=== PATIENT | male | born 1950 | race Caucasian/White ===

== ENCOUNTER 2020-10-18 11:24 | Observation (INO) ==
[2020-10-18] MEDS ORDERED: SODIUM CHLORIDE 0.9% 500 ML IV STA (11:48)
[2020-10-18] MEDS ORDERED: MoRPHine SULFATE 10 MG/ML CARP/VIAL IV PRN (11:48)
[2020-10-18] MEDS ORDERED: ONDANSETRON INJ 2 MG/ML 2 ML VIAL IV STA ×2 (11:48→14:26)
[2020-10-18 12:08] LABS: Hematocrit (blood only) 44.2 % (42-52); Hemoglobin 15.8 g/dL (14.0-18.0); Mean Corpuscular Hemoglobin 32.1 pg (25-34); Mean Corpuscular Hgb Conc 35.7 g/dL (32-36); Mean Corpuscular Volume 89.8 fL (80-100); Mean Platelet Volume 11.1 fL (7.4-10.4); Platelet Count 219 K/uL (130-400); RDW Coefficient of Variation 12.4 % (11.5-14.5); RDW Standard Deviation 40.6 fL (36.4-46.3); Red Blood Count 4.92 M/uL (4.7-6.1); White Blood Count 13.27 K/uL (4.8-10.8)
[2020-10-18] MEDS ORDERED: ACETAMINOPHEN 1,000 MG/100 ML VIAL IV STA (12:09)
[2020-10-18 12:23] LABS: BUN Creatinine Ratio 9.9 (10-20); Calcium 9.5 mg/dl (8.5-10.1); Est GFR (Non-African American) 39.7; Potassium 3.6 mmol/L (3.5-5.1)
--- NOTE | 2020-10-18 12:45 | Emergency Department Note ---
Impression & Plan Right distal ureteral calculus, Acute right flank pain, Hydroureteronephrosis, Acute kidney injury ED Provider Note CHIEF COMPLAINT: Right flank pain HISTORY OF PRESENTING ILLNESS: This is a 70-year-old male who presents to the emergency department by private vehicle with complaint of right flank pain that started yesterday and became more severe today. The patient states the pain starts in his right mid back and wraps around to the right abdomen and radiates into his groin, is constant, sharp and stabbing and "feels like someone is punching me in my back", and he rates the pain 10/10. He notes that he has been having some difficulty urinating as well. He does note a history of BPH. He states that he has been feeling very nauseated but has not vomited. He tried ibuprofen and hydrocodone for the pain and Zofran at home, but has not had any improvement. He denies any chest pain, chest tightness, shortness of breath, palpitations, or syncope. He has a history of a right inguinal hernia repair last summer, he denies any other abdominal surgeries. He denies any history of kidney stones, but states he has siblings with a history of kidney stones. REVIEW OF SYSTEMS: A complete 10 point review of systems was reviewed with the patient with pertinent positives and negatives as per history of present illness. All else were negative. PAST MEDICAL HISTORY: Hyperlipidemia, right inguinal hernia repair SOCIAL HISTORY: Lives at home, denies tobacco use ALLERGIES: No known allergies PHYSICAL EXAM: CONSTITUTIONAL: Pleasant and cooperative. Nontoxic-appearing and in no acute distress. Well appearing and well nourished. HEENT: Normocephalic, atraumatic. NECK: Supple, full active range of motion without discomfort. RESPIRATORY: Clear to auscultation bilaterally with no wheezing, crackles, rhonchi or stridor. Equal expansion bilaterally. CARDIOVASCULAR: Regular rate and rhythm with no murmurs, rubs or gallops. Normal peripheral perfusion. No edema. GASTROINTESTINAL: Tender to palpation in the right flank and right lower quadrant abdomen, no rebound tenderness or guarding. Abdomen is soft and mildly distended. No palpable masses or HSM. Bowel sounds present in all quadrants. Mild right-sided CVA tenderness to percussion. MUSCULOSKELETAL: Full range of motion of all joints without discomfort. INTEGUMENTARY: No rash or other significant dermatologic conditions noted. NEUROLOGIC: Alert and oriented X 4 with normal affect. Normal strength and sensation in all 4 extremities. Normal speech. Normal gait observed ED COURSE AND MEDICAL DECISION MAKING: CC: Patient presenting with complaint of right flank pain DIFFERENTIAL DIAGNOSIS: Includes, but not limited to ureteral stone, UTI, pyelonephritis, urinary retention, urinary obstruction, appendicitis, cholecystitis, cholelithiasis, pancreatitis, gastroenteritis, AAA, mesenteric ischemia, ACS, among others. INTERPRETATION OF LABS: Leukocytosis, no anemia, normal platelets, no significant electrolyte abnormalities, normal BUN with an elevated creatinine (increased from baseline), normal liver enzymes and lipase. Troponin is undetectable. UA negative. IMAGING: ABDOMEN AND PELVIS CT WITH IV CONTRAST CT DOSE: 1044.87 mGy.cm HISTORY: Acute right-sided flank pain right flank pain TECHNIQUE: Multiaxial CT images of the abdomen and pelvis were performed following the IV administration of 93 cc of Optiray 320, A dose lowering technique was utilized adhering to the principles of ALARA. COMPARISON STUDY: Abdominal ultrasound 01/30/2020 FINDINGS: The imaged inferior cardiac chambers are unremarkable. Mild subsegmental bibasilar atelectasis/scarring. There is no pneumatosis or p neumoperitoneum. 9 mm hypodense lesion of the superior spleen is indeterminate however statistically benign. Unremarkable pancreas and adrenal glands. Cholelithiasis without CT evidence of acute cholecystitis. Unremarkable liver. Patency of the hepatic and portal veins. There are a few left-sided renal cysts measure up to 9 mm. There is mild right- sided hydroureteronephrosis with reactive perinephric and periureteral edema with slightly delayed nephrogram secondary to an obstructing 4 x 3 x 2 mm calculus of the distal right ureter approximately 12 mm proximal to the ureterovesicular junction. Prostamegaly. Partial urinary bladder distention. Prior right-sided inguinal hernia repair. Mixed plaque of the abdominal aorta without aneurysm. No adenopathy. Mild nonspecific distal esophageal wall thickening with tiny hiatal hernia. Colonic diverticulosis. Normal appendix. Tiny fat filled periumbilical hernia. Severe facet arthrosis. Moderate to severe disc space narrowing at L5-S1. IMPRESSION: 1. Mild right-sided hydroureteronephrosis secondary to an obstructing 4 mm calculus of the distal right ureter approximately 12 mm proximal to the ureterovesicular junction resulting in a delayed nephrogram with reactive perinephric and periureteral edema. 2. No bowel obstruction or bowel wall thickening. Normal appendix. 3. Cholecystectomy. 4. Tiny hiatal hernia. EKG: Shows normal sinus rhythm with a rate of 73 bpm, normal intervals, no ST elevation or depression, no ectopy, no significant change when compared to previous EKG from 02/20/2020 by my interpretation. MEDICATION RECONCILIATION: I attest that I have personally reviewed the patient's current medication list. INITIAL VITAL SIGNS REVIEW: I reviewed the patient's initial vital signs and interpret them as follows: T: Afebrile; BP: Hypertensive; HR: Within normal limits; RR: Within normal limit; Pulse Ox: Within normal limits on room air. MDM SUMMARY: Patient was evaluated at bedside, history and physical exam performed. Patient is alert and oriented, in no acute distress, but appears significantly uncomfortable from pain. The patient has already received 6 mg IV morphine and 4 mg IV Zofran per nursing protocol orders and he does note that his pain is improved, currently rating it 7/10. He is afebrile and nontoxic-appearing. There is tenderness to palpation throughout the right flank and right lower abd omen, no acute abdomen. He complains of some nausea, but is not actively vomiting. Orders were placed for labs, UA and reflex culture, IV fluid bolus for hydration, EKG and troponin, CT abdomen/pelvis with IV contrast to evaluate for flank pain. Patient was additionally given a dose of 1000 mg IV Tylenol for pain. Patient discussed with Dr. Johns, who also evaluated the patient and agrees with my assessment, plan, and disposition. Labs and imaging reviewed as above, mild leukocytosis which I suspect is secondary to pain, no electrolyte abnormalities, creatinine is elevated from baseline suggestive of a mild SAMARA, liver enzymes and lipase are normal. Troponin negative. UA negative for infection or blood. CT imaging evaluated as above, noting a 4 mm distal right ureteral calculus with some mild hydroureteronephrosis. Patient was reassessed and updated on all results, he feels that his pain and nausea are starting to return and request something additional. IV Toradol and IV Zofran were ordered as well as p.o. Flomax and a second fluid bolus for continued hydration. I did also give the patient a dose of p.o. oxycodone 5 mg and p.o. fluids trial. Patient reassessed multiple times throughout ED stay, he has remained hemodynamically stable and afebrile, but he reports his pain is still 8/10 after receiving all the above medications and he continues to have nausea off and on. He is concerned about going home due to his pain level. I discussed with the patient the option of admission for pain management, he was agreeable to this. I feel that he warrants close monitoring of his creatinine as well and can be evaluated by urology tomorrow. I spoke with Dr. Ricardo, Hospitalist, who agrees to evaluate the patient for admission. The patient was stable at time of admission. The chart was completed utilizing [employer] Speech voice recognition software. Grammatical errors, random word insertions, pronoun errors, and incomplete sentences are an occasional consequence of this system due to software limitations, ambient noise, and hardware issues. Any formal questions or concer ns about the content, text, or information contained within the body of this dictation should be directly addressed to the nurse practitioner for clarification. Past Med/Surg History Medical History BPH (benign prostatic hyperplasia) History of herniated intervertebral disc no surgery needed Hyperlipidemia Surgical History H/O right inguinal hernia repair (02/25/20) Open right inguinal hernia repair. Dr. 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 Assistive Devices: None Allergies Allergies Allergy/AdvReac Type Severity Reaction Status Date / Time No Known Allergies Allergy NONE Verified 04/01/20 09:31 Home Meds Home Medications Medication Instructions Recorded Confirmed cholecalciferol (vitamin D3) 25 75 mcg PO DAILY 02/18/20 10/18/20 mcg (1,000 unit) tablet atorvastatin 10 mg tablet 10 mg PO DAILY 02/19/20 10/18/20 Previous Rx's Medication Instructions Recorded acetaminophen 1,000 mg PO TID #7 tab 10/19/20 ondansetron 4 mg disintegrating 4 mg PO Q8H PRN #14 tab 10/19/20 tablet oxycodone 5 mg PO Q4H PRN #10 tab 10/19/20 pantoprazole 40 mg PO DAILY 30 Days #30 tab 10/19/20 tamsulosin 0.4 mg PO HS 14 Days #14 cap 10/19/20 Results & Data (ED) Vital Signs Vital Signs - 24 hr 10/18/20 11:25 10/18/20 13:25 10/18/20 15:43 Temperature 36.6 C Temperature Source Temporal Artery Scan Pulse Rate 77 Pulse Rate [Finger] 78 72 Respiratory Rate 18 16 18 Blood Pressure 207/101 H Blood Pressure [Right Arm] 148/85 H 182/96 H Blood Pressure Mean 136 Blood Pressure Mean [Right Arm] 106 124 Pulse Oximetry 100 98 100 Oxygen Delivery Method Room Air Room Air Room Air Sepsis Recent Fever Within 48 Hours No Sepsis New/Unexplained Change in Mental Status No Sepsis Action Taken by Nursing No Action Required Laboratory Data Result diagrams: 10/19/20 05:22 10/19/20 05:22 Lab Results 10/18/20 10/18/20 10/18/20 Range/Units 11:48 11:48 11:48 WBC 13.27 H (4.8-10.8) K/uL RBC 4.92 (4.7-6.1) M/uL Hgb 15.8 (14.0-18.0) g/dL Hct 44.2 (42-52) % MCV 89.8 (80-100) fL MCH 32.1 (25-34) pg MCHC 35.7 (32-36) g/dL RDW Std Deviation 40.6 (36.4-46.3) fL RDW Coeff of Freddie 12.4 (11.5-14.5) % Plt Count 219 (130-400) K/uL MPV 11.1 H (7.4-10.4) fL Sodium 140 (136-145) mmol/L Potassium 3.6 (3.5-5.1) mmol/L Chloride 106 (98-107) mmol/L Carbon Dioxide 25 (21-32) mmol/L Anion Gap 9.0 (3-11) BUN 17 (7-18) mg/dl Creatinine 1.73 H (0.6-1.4) mg/dl Est Cr Clr Drug Dosing 48.0 ml/min Est GFR ( Amer) 46.0 Est GFR (Non-Af Amer) 39.7 BUN/Creatinine Ratio 9.9 L (10-20) Glucose 138 H (70-99) mg/dl Calcium 9.5 (8.5-10.1) mg/dl Total Bilirubin 0.8 (0.2-1) mg/dl Direct Bilirubin 0.2 (0-0.2) mg/dl AST 22 (15-37) U/L ALT 35 (12-78) U/L Alkaline Phosphatase 88 (45-117) U/L Troponin I < 0.015 (0-0.045) ng/ml Total Protein 7.3 (6.4-8.2) gm/dl Albumin 4.0 (3.4-5.0) gm/dl Lipase 54 L (73-393) U/L Urine Color Urine Appearance (Clear) Urine pH (4.5-7.5) Ur Specific Lima (1.000-1.030) Urine Protein (Negative) Urine Glucose (UA) (Negative) Urine Ketones (Negative) Urine Blood (Negative) Urine Nitrite (Negative) Urine Bilirubin (Negative) Urine Urobilinogen (Negative) Ur Leukocyte Esterase (Negative) Urine WBC (Auto) (0-5) /hpf Urine RBC (Auto) (0-4) /hpf U Hyaline Cast (Auto) (0-5) /lpf U Epithel Cells (Auto) (0-5) /lpf Urine Bacteria (Auto) (Negative) COVID-19 Eval Order SARS-CoV-2, RNA, NAAT (NEGATIVE) 10/18/20 10/18/20 10/18/20 Range/Units 13:15 16:15 16:15 WBC (4.8-10.8) K/uL RBC (4.7-6.1) M/uL Hgb (14.0-18.0) g/dL Hct (42-52) % MCV (80-100) fL MCH (25-34) pg MCHC (32-36) g/dL RDW Std Deviation (36.4-46.3) fL RDW Coeff of Freddie (11.5-14.5) % Plt Count (130-400) K/uL MPV (7.4-10.4) fL Sodium (136-145) mmol/L Potassium (3.5-5.1) mmol/L Chloride (98-107) mmol/L Carbon Dioxide (21-32) mmol/L Anion Gap (3-11) BUN (7-18) mg/dl Creatinine (0.6-1.4) mg/dl Est Cr Clr Drug Dosing ml/min Est GFR ( Amer) Est GFR (Non-Af Amer) BUN/Creatinine Ratio (10-20) Glucose (70-99) mg/dl Calcium (8.5-10.1) mg/dl Total Bilirubin (0.2-1) mg/dl Direct Bilirubin (0-0.2) mg/dl AST (15-37) U/L ALT (12-78) U/L Alkaline Phosphatase (45-117) U/L Troponin I (0-0.045) ng/ml Total Protein (6.4-8.2) gm/dl Albumin (3.4-5.0) gm/dl Lipase (73-393) U/L Urine Color Yellow Urine Appearance Cloudy A (Clear) Urine pH 5.5 (4.5-7.5) Ur Specific Lima 1.022 (1.000-1.030) Urine Protein Negative (Negative) Urine Glucose (UA) Negative (Negative) Urine Ketones 1+ H (Negative) Urine Blood Negative (Negative) Urine Nitrite Negative (Negative) Urine Bilirubin Negative (Negative) Urine Urobilinogen Negative (Negative) Ur Leukocyte Esterase Negative (Negative) Urine WBC (Auto) 0 (0-5) /hpf Urine RBC (Auto) 0-4 (0-4) /hpf U Hyaline Cast (Auto) 1-5 (0-5) /lpf U Epithel Cells (Auto) 0-5 (0-5) /lpf Urine Bacteria (Auto) Negative (Negative) COVID-19 Eval [facility] SARS-CoV-2, RNA, NAAT NEGATIVE (NEGATIVE) Administered Medications Discontinued Medications Acetaminophen (Acetaminophen 500 Mg Tab) 1,000 mg PO TID DIONNA Stop: 11/17/20 20:59 Last Admin: 10/19/20 08:48 Dose: 1,000 mg Documented by: [id number] Admin: 10/18/20 20:41 Dose: 1,000 mg Documented by: [id number] Al Hydrox/Mg Hydrox/Simethicone (Aluminum/Magnesium Susp 30 Ml Udc) 30 ml PO Q6H PRN PRN Reason: Dyspepsia Stop: 11/17/20 18:55 Last Admin: 10/18/20 19:01 Dose: 30 ml Documented by: [id number] Atorvastatin Calcium (Atorvastatin 10 Mg Tab) 10 mg PO DAILY DIONNA Stop: 11/18/20 08:59 Last Admin: 10/19/20 08:48 Dose: 10 mg Documented by: [id number] Sodium Chloride (Nss) 500 mls @ 999 mls/hr IV .Q31M STA Stop: 10/18/20 12:18 Last Infusion: 10/18/20 12:46 Dose: 0 mls/hr Documented by: [id number] Admin: 10/18/20 11:54 Dose: 999 mls/hr Documented by: [id number] Acetaminophen (Ofirmev) 1,000 mg in 100 mls @ 400 mls/hr IV NOW STA Stop: 10/18/20 12:23 Last Infusion: 10/18/20 12:46 Dose: 0 mls/hr Documented by: [id number] Admin: 10/18/20 12:16 Dose: 400 mls/hr Documented by: [id number] Sodium Chloride (Nss 1000ml) 1,000 mls @ 999 mls/hr IV .Q1H1M ONE Stop: 10/18/20 15:26 Last Infusion: 10/18/20 15:55 Dose: 0 mls/hr Documented by: [id number] Admin: 10/18/20 14:32 Dose: 999 mls/hr Documented by: [id number] Lactated Ringer's (Lr) 1,000 mls @ 999 mls/hr IV .Q1H1M ONE Stop: 10/18/20 17:22 Last Infusion: 10/18/20 18:16 Dose: 0 mls/hr Documented by: [id number] Admin: 10/18/20 16:59 Dose: 999 mls/hr Documented by: [id number] Lactated Ringer's (Lr) 1,000 mls @ 125 mls/hr IV .Q8H DIONNA Stop: 11/17/20 17:57 Last Infusion: 10/19/20 09:54 Dose: 0 mls/hr Documented by: [id number] Infusion: 10/19/20 05:41 Dose: 0 mls/hr Documented by: [id number] Admin: 10/19/20 02:50 Dose: 125 mls/hr Documented by: [id number] Infusion: 10/19/20 02:48 Dose: 125 mls/hr Documented by: [id number] Admin: 10/18/20 18:15 Dose: 125 mls/hr Documented by: [id number] Famotidine 20 mg/ Syringe 5 mls @ 2.5 mls/min IV ONE STA Stop: 10/18/20 22:25 Last Admin: 10/18/20 22:41 Dose: 2.5 mls/min Documented by: [id number] Ioversol (Ioversol 100ml) 93 ml IV ONCE ONE Stop: 10/18/20 13:01 Last Admin: 10/18/20 13:00 Dose: 93 ml Documented by: [id number] Ketorolac Tromethamine (Ketorolac Tromethamine 15 Mg/Ml Vial) 15 mg IV NOW STA Stop: 10/18/20 14:21 Last Admin: 10/18/20 14:32 Dose: 15 mg Documented by: [id number] Morphine Sulfate (Morphine Sulfate 10 Mg/Ml Carp/Vial) 6 mg IV Q10M PRN PRN Reason: Pain Last Admin: 10/18/20 11:53 Dose: 10 mg Documented by: [id number] Morphine Sulfate (Morphine Sulfate 4 Mg/Ml 1 Ml Carp\\Vial) 4 mg IV NOW STA Stop: 10/18/20 16:08 Last Admin: 10/18/20 16:13 Dose: 4 mg Documented by: [id number] Ondansetron HCl (Ondansetron Inj 2 Mg/Ml 2 Ml Vial) 4 mg IV NOW STA Stop: 10/18/20 11:49 Last Admin: 10/18/20 11:53 Dose: 4 mg Documented by: [id number] Ondansetron HCl (Ondansetron Inj 2 Mg/Ml 2 Ml Vial) 4 mg IV NOW STA Stop: 10/18/20 14:27 Last Admin: 10/18/20 14:32 Dose: 4 mg Documented by: [id number] Ondansetron HCl (Ondansetron Inj 2 Mg/Ml 2 Ml Vial) 4 mg IV Q4H PRN PRN Reason: Nausea Stop: 11/17/20 17:57 Last Admin: 10/18/20 21:58 Dose: 4 mg Documented by: [id number] Oxycodone HCl (Oxycodone Hcl Ir 5 Mg Tab (Immediate Release)) 5 mg PO NOW STA Stop: 10/18/20 15:37 Last Admin: 10/18/20 15:40 Dose: 5 mg Documented by: [id number] Tamsulosin HCl (Tamsulosin Hcl 0.4 Mg Cap) 0.4 mg PO NOW ONE Stop: 10/18/20 14:21 Last Admin: 10/18/20 14:48 Dose: 0.4 mg Documented by: [id number] Tamsulosin HCl (Tamsulosin Hcl 0.4 Mg Cap) 0.4 mg PO QAM [facility] Stop: 11/18/20 08:59 Last Admin: 10/19/20 08:49 Dose: 0.4 mg Documented by: [id number] Vitamin D (Cholecalciferol 1,000 Units 25 Mcg Tab) 3,000 units PO DAILY DIONNA Stop: 11/18/20 08:59 Last Admin: 10/19/20 08:49 Dose: 3,000 units Documented by: [id number] Discharge Plan Visit Data Chief Complaint: Flank Pain Stated Complaint: BACK PAIN,ABD PAIN,UNABLE TO URINATE ED Provider: Jonas Johns ED Midlevel Provider: Yasmin Cabezas Discharge Problem: Right distal ureteral calculus, Acute right flank pain, Hydroureteronephrosis, Acute kidney injury Patient Disposition: Admitted As Inpatient Condition: Good Discharge Instructions Interventions: ED Discharge Assessment Last Done: 10/18/20 17:39 Addendum (Blank) Addendum October 19, 2020 20:18 HPI: 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 PE: AFVSS, uncomfortable but in NAD NC/AT Abd soft mild right flank and right lower quadrant discomfort. Ext: no edema, erythema Neuro: grossly intact Plan: CT shows 4 x 3 x 2 mm calculus of the distal right ureter approximately 12 mm proximal to the ureterovesicular junction with associated mild right-sided hydroureteronephrosis with reactive perinephric and periureteral edema. UA without evidence of infection. Mild renal insufficiency appears to be new. Pain persisting despite initial treatment. Admit for pain control. I reviewed the patient's past medical history, medications, and visit nursing notes. I discussed the case with the physician pharmacy innovation assistant, examined the patient, and agree with the findings and plan as documented in MAYURI Cabezas's note.
[2020-10-18] MEDS ORDERED: IOVERSOL 100ml IV ONE (13:00)
--- NOTE | 2020-10-18 13:22 | CT Scan Report ---
ABDOMEN AND PELVIS CT WITH IV CONTRAST CT DOSE: 1044.87 mGy.cm HISTORY: Acute right-sided flank pain right flank pain TECHNIQUE: Multiaxial CT images of the abdomen and pelvis were performed following the IV administrat ion of 93 cc of Optiray 320, A dose lowering technique was utilized adhering to the principles of [place]. COMPARISON STUDY: Abdominal ultrasound 01/30/2020 FINDINGS: The imaged inferior cardiac chambers are unremarkable. Mild subsegmental bibasilar atelecta sis/scarring. There is no pneumatosis or pneumoperitoneum. 9 mm hypodense lesion of the superior sple en is indeterminate however statistically benign. Unremarkable pancreas and adrenal glands. Cholelith iasis without CT evidence of acute cholecystitis. Unremarkable liver. Patency of the hepatic and port al veins. There are a few left-sided renal cysts measure up to 9 mm. There is mild right-sided hydroureteroneph rosis with reactive perinephric and periureteral edema with slightly delayed nephrogram secondary to an obstructing 4 x 3 x 2 mm calculus of the distal right ureter approximately 12 mm proximal to the u reterovesicular junction. Prostamegaly. Partial urinary bladder distention. Prior right-sided inguina l hernia repair. Mixed plaque of the abdominal aorta without aneurysm. No adenopathy. Mild nonspecific distal esophageal wall thickening with tiny hiatal hernia. Colonic diverticulosis. N ormal appendix. Tiny fat filled periumbilical hernia. Severe facet arthrosis. Moderate to severe disc space narrowing at L5-S1. IMPRESSION: 1. Mild right-sided hydroureteronephrosis secondary to an obstructing 4 mm calculus of the distal rig ht ureter approximately 12 mm proximal to the ureterovesicular junction resulting in a delayed nephro gram with reactive perinephric and periureteral edema. 2. No bowel obstruction or bowel wall thickening. Normal appendix. 3. Cholecystectomy. 4. Tiny hiatal hernia. ACT 112: Negative or not required by law. The above report was generated using voice recognition software. It may contain grammatical, syntax o r spelling errors. Electronically signed by: Андрей Bowie M.D. 10/18/2020 1:20 PM
[2020-10-18 13:23] LABS: Alanine Aminotransferase 35 U/L (12-78); Alkaline Phosphatase 88 U/L (45-117); Aspartate Aminotransferase 22 U/L (15-37); Bilirubin Direct 0.2 mg/dl (0-0.2); Bilirubin,Total 0.8 mg/dl (0.2-1); Lipase 54 U/L (73-393); Total Protein 7.3 gm/dl (6.4-8.2); Troponin I < 0.015 ng/ml (0-0.045)
[2020-10-18 13:31] LABS: Appearance Urine Cloudy (Clear); Bacteria Urine Automated Negative (Negative); Bilirubin Urine Negative (Negative); Blood Urine Negative (Negative); Color Urine Yellow; Epithelial Cell Urine Auto 0-5 /lpf (0-5); Glucose Urine UA Negative (Negative); Ketones Urine 1+ (Negative); Leukocyte Esterase Urine Negative (Negative); Nitrite Urine Negative (Negative); Protein Urine Negative (Negative); RBC Urine Automated 0-4 /hpf (0-4); Specific Gravity Urine 1.022 (1.000-1.030); Urobilinogen Urine Negative (Negative); WBC Urine Automated 0 /hpf (0-5); pH Urine 5.5 (4.5-7.5)
[2020-10-18] MEDS ORDERED: TAMSULOSIN HCL 0.4 MG CAP PO ONE (14:20)
[2020-10-18] MEDS ORDERED: KETOROLAC TROMETHAMINE 15 MG/ML VIAL IV STA (14:20)
[2020-10-18] MEDS ORDERED: SODIUM CHLORIDE 0.9% 1000ML 1,000 ML IV ONE (14:26)
[2020-10-18] MEDS ORDERED: oxyCODONE HCL IR 5 MG TAB (IMMEDIATE RELEASE) PO STA (15:36)
[2020-10-18] MEDS ORDERED: MoRPHine SULFATE 4 MG/ML 1 ML CARP\\VIAL IV STA (16:07)
[2020-10-18] MEDS ORDERED: LACTATED RINGER'S 1,000 ML IV ONE (16:22)
--- NOTE | 2020-10-18 16:31 | History & Physical Report ---
Date of Service October 18, 2020 Assessment & Plan (1) Right distal ureteral calculus: Pain management with acetaminophen, Toradol as needed, oxycodone as needed. Strain urine XR KUB in AM Tamsulosin 0.4mg PO Consult urology (2) Acute kidney injury: Mild hydronephrosis on CT. IV fluids given in ER. (3) Hydroureteronephrosis: (4) BPH (benign prostatic hyperplasia): Continue tamsulosin 0.4mg PO, follow up with urology. 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 He reports waking up with right flank pain yesterday which was initially mild. He took some ibuprofen and managed to go back to sleep. He has a history of a slipped disc in his back and initially felt the pain may be related to this. However, the pain returned a pproximately 5 PM yesterday and has been continuous since then. This morning around 9:30am his pain became much more severe 10/10, radiating to abdominal right lower quadrant. He reports writhing around in pain therefore decided to come to the emergency room. He denies any fever, chills or dysuria. In the ER CT confirmed an obstructing 4 mm ureterolithiasis, 12 mm proximal to the ureterovesicular junction. He denies any history of kidney stones. UA not concerning for infection. He was referred to medicine for admission and ongoing management of renal colic, hydronephrosis and intractable pain. Allergies Allergy/AdvReac Type Severity Reaction Status Date / Time No Known Allergies Allergy NONE Verified 04/01/20 09:31 Home Medications Medication Instructions Recorded Confirmed Type cholecalciferol (vitamin D3) 25 75 mcg PO DAILY 02/18/20 10/18/20 History mcg (1,000 unit) tablet atorvastatin 10 mg tablet 10 mg PO DAILY 02/19/20 10/18/20 History acetaminophen 1,000 mg PO TID #7 tab 10/19/20 Rx oxycodone 5 - 10 mg PO Q4H PRN #7 tab 10/19/20 Rx pantoprazole 40 mg PO DAILY 30 Days #30 tab 10/19/20 Rx tamsulosin 0.4 mg PO HS 14 Days #14 cap 10/19/20 Rx Past Med/Surg History Medical History BPH (benign prostatic hyperplasia) History of herniated intervertebral disc no surgery needed Hyperlipidemia Surgical History H/O right inguinal hernia repair (02/25/20) Open right inguinal hernia repair. Dr. 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 Feels Safe at Home: Yes Safety Concerns: Feels Safe At This Time Assistive Devices: None Review of Systems Review of Systems: All systems reviewed & are unremarkable except as noted in HPI & below Physical Exam Constitutional: WD/WN, vitals as above Eyes: + anicteric sclerae; normal pupil size Respiratory: normal respiratory effort, lungs clear to auscultation Cardiovascular: RRR, no murmur, no edema Gastrointestinal (Abdomen): normal bowel sounds, soft, nontender, no h epatosplenomegaly Musculoskeletal: no cyanosis or clubbing, extremities motor strength 5/5 Skin: no rashes, warm and dry Neurologic: moves all extremities and awake; not confused Psychiatric: A+Ox3, euthymic affect Genitourinary: + CVA tenderness (very mild left sided) Results & Data Results & Data ([facility]) Vital Signs (Past 12 Hours) Vital Signs Temp Pulse Pulse Resp BP BP Pulse Ox 10/18/20 15:43 72 18 182/96 H 100 10/18/20 13:25 78 16 148/85 H 98 10/18/20 11:25 36.6 C 77 18 207/101 H 100 Diagnostic Findings ABDOMEN AND PELVIS CT WITH IV CONTRAST IMPRESSION: 1. Mild right-sided hydroureteronephrosis secondary to an obstructing 4 mm calculus of the distal right ureter approximately 12 mm proximal to the ureterovesicular junction resulting in a delayed nephrogram with reactive perinephric and periureteral edema. 2. No bowel obstruction or bowel wall thickening. Normal appendix. 3. Cholecystectomy. 4. Tiny hiatal hernia. Medications Administered ER Medications given: Ondansetron 4mg IV x2 Morphine 6mg + 4mg IV NSS 500ml bolus + 1L bolus Acetaminophen 1g IV Toradol 15mg IV Tamsulosin 0.4mg PO Oxycodone 5mg PO ECG Indication: abdominal pain Rate (beats per minute): 73 Rhythm: normal sinus Comparison ECG Date: from (February 20, 2020) Change: no significant change Code Status & VTE Plan Code Status Full VTE Prophylaxis Plan VTE Prophylaxis will be ordered: No PG Care Time/CCT Total # of Minutes Spent Total Time Spent with Patient: Total time spent is greater than 50% in coordination of care (as documented) at patient's floor/unit and/or counseling patient: Coding Level of Care Code 70294 Initial Inpt Care Lvl 2 Diagnoses Right distal ureteral calculus N20.1 Acute kidney injury N17.9 Hydroureteronephrosis N13.30 BPH (benign prostatic hyperplasia) N40.0
[2020-10-18] MEDS ORDERED: oxyCODONE HCL IR 5 MG TAB (IMMEDIATE RELEASE) PO PRN (17:58)
[2020-10-18] MEDS ORDERED: KETOROLAC TROMETHAMINE 15 MG/ML VIAL IV PRN (17:58)
[2020-10-18] MEDS ORDERED: ONDANSETRON INJ 2 MG/ML 2 ML VIAL IV PRN (17:58)
[2020-10-18] MEDS: LACTATED RINGER'S 1,000 ML IV SCH (18:15)
[2020-10-18] MEDS ORDERED: ALUMINUM/MAGNESIUM SUSP 30 ML UDC PO PRN (18:56)
[2020-10-18] MEDS ORDERED: MoRPHine SULFATE 4 MG/ML 1 ML CARP\\VIAL IV PRN (20:27)
[2020-10-18] MEDS: ACETAMINOPHEN 500 MG TAB PO SCH (20:41)
[2020-10-18] MEDS ORDERED: FAMOTIDINE 20 MG in SYRINGE 3 ML IV STA (22:24)
[2020-10-19] MEDS: LACTATED RINGER'S 1,000 ML IV SCH (02:50)
[2020-10-19 06:03] LABS: Basophils # (auto) 0.01 K/uL (0-0.2); Basophils % (auto) 0.1 %; Eosinophils # (auto) 0.01 K/uL (0-0.5); Eosinophils % (auto) 0.1 %; Hematocrit (blood only) 37.4 % (42-52); Hemoglobin 12.9 g/dL (14.0-18.0); Immature Granulocytes # (auto) 0.02 K/uL (0.00-0.02); Immature Granulocytes % (auto) 0.2 %; Lymphocytes # (auto) 1.88 K/uL (1.2-3.4); Lymphocytes % (auto) 19.1 %; Mean Corpuscular Hemoglobin 31.4 pg (25-34); Mean Corpuscular Hgb Conc 34.5 g/dL (32-36); Monocytes # (auto) 1.12 K/uL (0.11-0.59); Monocytes % (auto) 11.4 %; Neutrophils # (auto) 6.79 K/uL (1.4-6.5); Neutrophils % (auto) 69.1 %; Platelet Count 180 K/uL (130-400); RDW Coefficient of Variation 12.5 % (11.5-14.5); RDW Standard Deviation 41.6 fL (36.4-46.3); Red Blood Count 4.11 M/uL (4.7-6.1); White Blood Count 9.83 K/uL (4.8-10.8)
[2020-10-19 06:30] LABS: BUN Creatinine Ratio 10.5 (10-20); Creatinine Clr Calc Pharmacy 60.8 ml/min; Est GFR (Non-African American) 52.6; Potassium 4.3 mmol/L (3.5-5.1)
[2020-10-19 07:04] VITALS: BP 120/70; PULSE 72; TEMP 99; O2SAT 93
--- NOTE | 2020-10-19 08:09 | Hospitalist Progress Note ---
Date of Service October 19, 2020 Assessment & Plan Admission and Anticipated Discharge Date Admission Date: October 18, 2020 Results & Data Results & Data ([facility]) Vital Signs (Past 12 Hours) Vital Signs Temp Pulse Resp BP Pulse Ox 10/19/20 07:03 37.2 C 72 16 120/70 93 10/18/20 22:20 36.7 C 70 16 134/75 98 Laboratory Results 10/19/20 10/19/20 10/18/20 Range/Units 05:22 05:22 16:15 WBC 9.83 (4.8-10.8) K/uL RBC 4.11 L (4.7-6.1) M/uL Hgb 12.9 L (14.0-18.0) g/dL Hct 37.4 L (42-52) % MCV 91.0 (80-100) fL MCH 31.4 (25-34) pg MCHC 34.5 (32-36) g/dL RDW Std Deviation 41.6 (36.4-46.3) fL RDW Coeff of Freddie 12.5 (11.5-14.5) % Plt Count 180 (130-400) K/uL MPV 11.0 H (7.4-10.4) fL Immature Gran % (Auto) 0.2 % Neut % (Auto) 69.1 % Lymph % (Auto) 19.1 % [place] % (Auto) 11.4 % Eos % (Auto) 0.1 % Baso % (Auto) 0.1 % Neut # (Auto) 6.79 H (1.4-6.5) K/uL Lymph # (Auto) 1.88 (1.2-3.4) K/uL [place] # (Auto) 1.12 H (0.11-0.59) K/uL Eos # (Auto) 0.01 (0-0.5) K/uL Baso # (Auto) 0.01 (0-0.2) K/uL Immature Gran # (Auto) 0.02 (0.00-0.02) K/uL Sodium 139 (136-145) mmol/L Potassium 4.3 D (3.5-5.1) mmol/L Chloride 107 (98-107) mmol/L Carbon Dioxide 26 (21-32) mmol/L Anion Gap 6.0 (3-11) BUN 14 (7-18) mg/dl Creatinine 1.37 D (0.6-1.4) mg/dl Est Cr Clr Drug Dosing 60.8 ml/min Est GFR ( Amer) 61.0 Est GFR (Non-Af Amer) 52.6 BUN/Creatinine Ratio 10.5 (10-20) Glucose 110 H (70-99) mg/dl Calcium 9.0 (8.5-10.1) mg/dl Total Bilirubin (0.2-1) mg/dl Direct Bilirubin (0-0.2) mg/dl AST (15-37) U/L ALT (12-78) U/L Alkaline Phosphatase (45-117) U/L Troponin I (0-0.045) ng/ml Total Protein (6.4-8.2) gm/dl Albumin (3.4-5.0) gm/dl Lipase (73-393) U/L Urine Color Urine Appearance (Clear) Urine pH (4.5-7.5) Ur Specific [place] (1.000-1.030) Urine Protein (Negative) Urine Glucose (UA) (Negative) Urine Ketones (Negative) Urine Blood (Negative) Urine Nitrite (Negative) Urine Bilirubin (Negative) Urine Urobilinogen (Negative) Ur Leukocyte Esterase (Negative) Urine WBC (Auto) (0-5) /hpf Urine RBC (Auto) (0-4) /hpf U Hyaline Cast (Auto) (0-5) /lpf U Epithel Cells (Auto) (0-5) /lpf Urine Bacteria (Auto) (Negative) COVID-19 Eval Order SARS-CoV-2, RNA, NAAT NEGATIVE (NEGATIVE) 10/18/20 10/18/20 10/18/20 Range/Units 16:15 13:15 11:48 WBC (4.8-10.8) K/uL RBC (4.7-6.1) M/uL Hgb (14.0-18.0) g/dL Hct (42-52) % MCV (80-100) fL MCH (25-34) pg MCHC (32-36) g/dL RDW Std Deviation (36.4-46.3) fL RDW Coeff of Freddie (11.5-14.5) % Plt Count (130-400) K/uL MPV (7.4-10.4) fL Immature Gran % (Auto) % Neut % (Auto) % Lymph % (Auto) % [place] % (Auto) % Eos % (Auto) % Baso % (Auto) % Neut # (Auto) (1.4-6.5) K/uL Lymph # (Auto) (1.2-3.4) K/uL [place] # (Auto) (0.11-0.59) K/uL Eos # (Auto) (0-0.5) K/uL Baso # (Auto) (0-0.2) K/uL Immature Gran # (Auto) (0.00-0.02) K/uL Sodium (136-145) mmol/L Potassium (3.5-5.1) mmol/L Chloride (98-107) mmol/L Carbon Dioxide (21-32) mmol/L Anion Gap (3-11) BUN (7-18) mg/dl Creatinine (0.6-1.4) mg/dl Est Cr Clr Drug Dosing ml/min Est GFR ( Amer) Est GFR (Non-Af Amer) BUN/Creatinine Ratio (10-20) Glucose (70-99) mg/dl Calcium (8.5-10.1) mg/dl Total Bilirubin 0.8 (0.2-1) mg/dl Direct Bilirubin 0.2 (0-0.2) mg/dl AST 22 (15-37) U/L ALT 35 (12-78) U/L Alkaline Phosphatase 88 (45-117) U/L Troponin I < 0.015 (0-0.045) ng/ml Total Protein 7.3 (6.4-8.2) gm/dl Albumin 4.0 (3.4-5.0) gm/dl Lipase 54 L (73-393) U/L Urine Color Yellow Urine Appearance Cloudy A (Clear) Urine pH 5.5 (4.5-7.5) Ur Specific [place] 1.022 (1.000-1.030) Urine Protein Negative (Negative) Urine Glucose (UA) Negative (Negative) Urine Ketones 1+ H (Negative) Urine Blood Negative (Negative) Urine Nitrite Negative (Negative) Urine Bilirubin Negative (Negative) Urine Urobilinogen Negative (Negative) Ur Leukocyte Esterase Negative (Negative) Urine WBC (Auto) 0 (0-5) /hpf Urine RBC (Auto) 0-4 (0-4) /hpf U Hyaline Cast (Auto) 1-5 (0-5) /lpf U Epithel Cells (Auto) 0-5 (0-5) /lpf Urine Bacteria (Auto) Negative (Negative) COVID-19 Eval [facility] SARS-CoV-2, RNA, NAAT (NEGATIVE) 10/18/20 10/18/20 Range/Units 11:48 11:48 WBC 13.27 H (4.8-10.8) K/uL RBC 4.92 (4.7-6.1) M/uL Hgb 15.8 (14.0-18.0) g/dL Hct 44.2 (42-52) % MCV 89.8 (80-100) fL MCH 32.1 (25-34) pg MCHC 35.7 (32-36) g/dL RDW Std Deviation 40.6 (36.4-46.3) fL RDW Coeff of Freddie 12.4 (11.5-14.5) % Plt Count 219 (130-400) K/uL MPV 11.1 H (7.4-10.4) fL Immature Gran % (Auto) % Neut % (Auto) % Lymph % (Auto) % [place] % (Auto) % Eos % (Auto) % Baso % (Auto) % Neut # (Auto) (1.4-6.5) K/uL Lymph # (Auto) (1.2-3.4) K/uL [place] # (Auto) (0.11-0.59) K/uL Eos # (Auto) (0-0.5) K/uL Baso # (Auto) (0-0.2) K/uL Immature Gran # (Auto) (0.00-0.02) K/uL Sodium 140 (136-145) mmol/L Potassium 3.6 (3.5-5.1) mmol/L Chloride 106 (98-107) mmol/L Carbon Dioxide 25 (21-32) mmol/L Anion Gap 9.0 (3-11) BUN 17 (7-18) mg/dl Creatinine 1.73 H (0.6-1.4) mg/dl Est Cr Clr Drug Dosing 48.0 ml/min Est GFR ( Amer) 46.0 Est GFR (Non-Af Amer) 39.7 BUN/Creatinine Ratio 9.9 L (10-20) Glucose 138 H (70-99) mg/dl Calcium 9.5 (8.5-10.1) mg/dl Total Bilirubin (0.2-1) mg/dl Direct Bilirubin (0-0.2) mg/dl AST (15-37) U/L ALT (12-78) U/L Alkaline Phosphatase (45-117) U/L Troponin I (0-0.045) ng/ml Total Protein (6.4-8.2) gm/dl Albumin (3.4-5.0) gm/dl Lipase (73-393) U/L Urine Color Urine Appearance (Clear) Urine pH (4.5-7.5) Ur Specific [place] (1.000-1.030) Urine Protein (Negative) Urine Glucose (UA) (Negative) Urine Ketones (Negative) Urine Blood (Negative) Urine Nitrite (Negative) Urine Bilirubin (Negative) Urine Urobilinogen (Negative) Ur Leukocyte Esterase (Negative) Urine WBC (Auto) (0-5) /hpf Urine RBC (Auto) (0-4) /hpf U Hyaline Cast (Auto) (0-5) /lpf U Epithel Cells (Auto) (0-5) /lpf Urine Bacteria (Auto) (Negative) COVID-19 Eval Order SARS-CoV-2, RNA, NAAT (NEGATIVE) PG Care Time/CCT Total # of Minutes Spent Total Time Spent with Patient: Total time spent is greater than 50% in coordination of care (as documented) at patient's floor/unit and/or counseling patient: Coding
--- NOTE | 2020-10-19 08:30 | XRay Report ---
KUB HISTORY: Ureteral calculus. COMPARISON: Abdomen and pelvis CT 10/18/2020. FINDINGS: The bowel gas pattern is unremarkable. There are no dilated loops of small bowel to suggest an obstruction. Multiple calcifications in the deep pelvis, the majority which favor phleboliths. T here is a 2 mm calcification also within the right deep pelvis which likely represents the right UVJ stone. No renal calculi identified. No pneumoperitoneum or pneumatosis. IMPRESSION: Multiple calcifications in the deep pelvis, the majority of which favor phleboliths. There is a 2 mm calcification also within the right deep pelvis which likely represents the right UVJ stone seen on t he recent CT. ACT 112: Negative or not required by law. Electronically signed by: Lane Cid M.D. 10/19/2020 8:29 AM
--- NOTE | 2020-10-19 08:32 | Electrocardiogram Report ---
Test Reason : Blood Pressure : / mmHG Vent. Rate : 073 BPM Atrial Rate : 073 BPM P-R Int : 134 ms QRS Dur : 092 ms QT Int : 378 ms P-R-T Axes : 027 014 020 degrees QTc Int : 416 ms Normal sinus rhythm Normal ECG When compared with ECG of 20-FEB-2020 09:42, No significant change was found Confirmed by Mark Chavez ([id number]) on 10/19/2020 8:31:52 AM Referred By: REFERRED SELF Confirmed By:Mark Chavez
[2020-10-19] MEDS: ACETAMINOPHEN 500 MG TAB PO SCH (08:48)
[2020-10-19] MEDS ORDERED: CHOLECALCIFEROL 1,000 UNITS 25 MCG TAB PO SCH (09:00)
[2020-10-19] MEDS ORDERED: ATORVASTATIN 10 MG TAB PO SCH (09:00)
[2020-10-19] MEDS ORDERED: TAMSULOSIN HCL 0.4 MG CAP PO SCH (09:00)
--- NOTE | 2020-10-19 09:32 | Discharge Summary ---
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 He reports waking up with right flank pain yesterday which was initially mild. He took some ibuprofen and managed to go back to sleep. He has a history of a slipped disc in his back and initially felt the pain may be related to this. However, the pain returned approximately 5 PM yesterday and has been continuous since then. This morning around 9:30am his pain became much more severe /10, radiating to abdominal right lower quadrant. He reports writhing around in pain therefore decided to come to the emergency room. In the ER CT confirmed an obstructing 4 mm ureterolithiasis, 12 mm proximal to the ureterovesicular junction. He denies any history of kidney stones. He was referred to medicine for admission and ongoing management of renal colic, hydronephrosis and intractable pain. Admission Exam Per Admitting Provider Constitutional: WD/WN, vitals as above Eyes: + anicteric sclerae; normal pupil size Respiratory: normal respiratory effort, lungs clear to auscultation Cardiovascular: RRR, no murmur, no edema Gastrointestinal (Abdomen): normal bowel sounds, soft, nontender, no hepatosplenomegaly Musculoskeletal: no cyanosis or clubbing, extremities motor strength 5/5 Skin: no rashes, warm and dry Neurologic: moves all extremities and awake; not confused Psychiatric: A+Ox3, euthymic affect Genitourinary: + CVA tenderness (very mild left sided) Principal Diagnosis R sided kidney stone with hydronephrosis Discharge Exam Constitutional WD/WN, vitals as above well developed and well nourished; no acute distress and not ill appearing Eyes + anicteric sclerae; normal pupil size ENMT mmm Neck normal visual inspection Respiratory normal respiratory effort, lungs clear to auscultation normal respiratory effort and able to speak in complete sentences Cardiovascular RRR, no murmur, no edema Extremities: no calf tenderness Gastrointestinal (Abdomen) normal bowel sounds, soft, nontender, no hepatosplenomegaly Inspection/Auscultation: abdomen normal to inspection Musculoskeletal no cyanosis or clubbing, extremities motor strength 5/5 Skin no rashes, warm and dry Neurologic moves all extremities and awake; not confused Psychiatric A+Ox3, euthymic affect Orientation: alert, oriented x 3 and cooperative Genitourinary + CVA tenderness (very mild R sided) Discharge Data Allergies Allergy/AdvReac Type Severity Reaction Status Date / Time No Known Allergies Allergy NONE Verified 04/01/20 09:31 Consultations 10/18/20 16:07 ED Decision to Admit Stat 10/18/20 17:58 Consult Urology Routine Ordered Studies 10/18/20 12:09 CT abd pelvis IV con only Stat 10/19 Hospital Course (1) Right distal ureteral calculus: Admitted to medical floor Conservative management Pain control -- tylenol, toradol, oxycodone prn Flomax UA without evidence of infection Urology consulted -- felt could manage as an outpatient given improvement of kidney function, good urine output, and decreased pain. No further n/v (although he did note increased reflux like symptoms and given pepcid while inpatient and sent with rx for protonix) --> Of note, patient did note coffee ground emesis but no sample collected. Consider outpatient EGD for further evaluation/discussion with PCP at follow up appointment --> will have repeat BMP and KUB prior to follow up appointment with Urology in 1-2 weeks To continue to strain urine, utilize flomax for expulsion and to collect any passed stone(s) for analysis Discharged home with pain control, flomax and urine strainer. (2) Hydroureteronephrosis: Mild hydronephrosis on CT noted See above (3) Acute kidney injury: Improving Cr 1.73 to 1.37 today Repeat BMP in next week or sooner if symptoms develop Given elevated Cr on admission and prior elevation, consider outpatient follow up with Nephrology to establish care at discretion of PCP. Follow up with PCP in next 1-2 weeks. Repeat chemistries as above (4) BPH (benign prostatic hyperplasia): Flomax -- sent rx at discharge consider continuing therapy longer for BPH Total Time Total Time Spent Total Time Spent (In Minutes): 60 Discharge Plan Discharge Items Patient Disposition: Home - Self-Care Reason For Visit: RIGHT OBSTRUCTING URETEROLITHIASIS Discharge Diagnosis: Right Kidney Stone Condition on Discharge: Good Goals: You have been hospitalized for an acute medical problem. During your stay at [facility], we have made an effort to correct the problem that brought you to the hospital while keeping you as comfortable as possible. Medications were used to bring your condition under control and your discharge instructions will include directions for any medications you should take after leaving the hospital. Please make sure you see your Primary Care Provider as part of your follow up plan. Activity: Resume your previous activity Non-emergency contact: Primary Care Provider Call non-emergency contact if: you have any medication questions Follow-up/Referrals: Summer Ayala CRNP [Nurse Practitioner] - (1-2 weeks) Hieu Schwartz [Primary Care Provider] - 10/27/20 12:15 pm (GO TO PCP OFFICE FOR APPT.) Diet: Heart Healthy Ambulatory Orders: Basic Metabolic Panel (Routine) Timeframe: 1 Week Location: Determined by Patient Ordered By: Summer Garcia XR KUB/Abdomen 1 view (Routine) Timeframe: 1 Week Location: Determined by Patient Ordered By: Summer Garcia Addtl Attending Provider Instructions: You have been hospitalized and found to have a right sided kidney stone. You have been treated conservatively, and while your stone has not yet passed, your kidney function has improved and your urine was without infection. You have been evaluated by Urology and it has been determined that you are safe for discharge and should have follow up with their office in the next 1-2 weeks. You have been provided orders for repeat KUB (abdominal xray) and chemistries to have done before your follow up appointments. These results with also be forwarded to Dr. Schwartz. You should continue to strain your urine and have been sent a prescription for flomax to take at night to help expel the stone as well as a short prescription for pain medication to use for breakthrough pain. If you develop pain with urination, fever, decreased urine output or for any symptoms that are concerning for you, please return to the emergency department. Otherwise, please follow up with your PCP in the next 1-2 weeks to monitor your progress as well as with Urology. Given symptoms of increased reflux, you have been sent a prescription for Protonix to take once daily. Please take 30 minutes prior to food for best results. Please note, if you continue with symptoms (as your vomit was not tested for blood, although blood counts have been stable), you should talk with Dr. Schwartz about getting an EGD as an outpatient for further evaluation. Please avoid ibuprofen/NSAIDs in the meantime as this can increase irritation and utilize Tylenol for all other non-severe pain. It has been a pleasure being a part of the medical team providing for you while you have been in the hospital. Take care! Pending Studies at Discharge: No Stand-Alone Forms: [facility], Opioid Pain Management Medications and DC Order Prescriptions: New acetaminophen 500 mg Tablet 1,000 mg PO TID Qty: 7 RF: 0 tamsulosin 0.4 mg Capsule 0.4 mg PO HS 14 Days Qty: 14 RF: 0 pantoprazole 40 mg tablet,delayed release (DR/EC) 40 mg PO DAILY 30 Days Qty: 30 RF: 0 oxycodone 5 mg tablet 5 mg PO Q4H PRN (Reason: pain) Qty: 10 RF: 0 Continued cholecalciferol (vitamin D3) 25 mcg (1,000 unit) tablet 75 mcg PO DAILY RF: 0 atorvastatin [Lipitor] 10 mg tablet 10 mg PO DAILY RF: 0 Discharge Orders: Discharge Order (Routine); Ordered 10/19/20 Ordered By: Summer Garcia Admission Data Admit Date/Time: 10/18/20 16:29 Attending Provider: Ronald Avila Admit Provider: Darshan Ricardo Primary Care Provider: Hieu Schwartz Other Providers: Darshan Ricardo ; Gonzalez Bernal Other Interventions: Discharge Summary Assessment (RN) Last Done: 10/19/20 09:50 Coding Level of Care Code D/C Day Management >30 mins Diagnoses Right distal ureteral calculus N20.1 Hydroureteronephrosis N13.30 Acute kidney injury N17.9 BPH (benign prostatic hyperplasia) N40.0
--- NOTE | 2020-10-19 09:41 | Urology Consultation ---
Date of Consultation October 19, 2020 Assessment & Plan (1) Right distal ureteral calculus: (2) Acute right flank pain: 70yo M admitted with intractable right flank pain secondary to a 4mm distal right ureteral stone with mild hydronephrosis -Patient clinically progressing with significant improvement in pain today. -He remains afebrile. -Wbc is stable and creatinine improved today to 1.37 (previously 1.73). -KUB this morning revealed a 2 mm calcification within the right deep pelvis which likely represents the right UVJ stone seen on the recent CT. -Discussed outpatient options for conservative measures with max expulsion medical therapy and symptom control. -Discussed outpatient ESWL given the stone was visualized on the KUB this morning. -Discussed ureteroscopy laser lithotripsy with stent insertion. -Risks/benefits of all procedures discussed. -Patient prefers outpatient management with max expulsion therapy and trial of passage. -No acute intervention planned today. -Recommend hydration and to continue straining all urine. -Ok for discharge from perspective. -Reviewed in detail signs/symptoms that would warrant return to the hospital, patient verbalized an understanding. -Recommend home with flomax and pain control. -Will arrange outpatient follow-up with urology within the next 1-2 weeks. -Patient agreeable to above plan, all questions were answered. Thank you for allowing us to participate in the acute care of Mr. Bruno. Please reconsult us with additional questions, concerns or changes in patient status. History of Present Illness Reason for Consultation: Right Ureteral stone Attending Physician: Ronald Avila History of Present Illness The patient is a 70 year-old male who presented to [facility] ER on 10/18 with right flank pain for [address] abdomen pelvis revealed an obstructing 4mm right distal ureteral stone with mild hydronephrosis. The patient was admitted for management of renal colic and intractable pain. PMHx includes hx of right inguinal hernia repair, herniated lumbar disc, BPH Labs on admission: Wbc 13.27, Hgb 15.8, Cr 1.73. Urinalysis negative for blood, leukocytes, nitrites, and bacteria. CT A/P IMPRESSION 10/18: 1. Mild right-sided hydroureteronephrosis secondary to an obstructing 4 mm calculus of the distal right ureter approximately 12 mm proximal to the ureterovesicular junction resulting in a delayed nephrogram with reactive perinephric and periureteral edema. 2. No bowel obstruction or bowel wall thickening. Normal appendix. 3. Cholecystectomy. 4. Tiny hiatal hernia. KUB IMPRESSION 10/19: Multiple calcifications in the deep pelvis, the majority of which favor phleboliths. There is a 2 mm calcification also within the right deep pelvis which likely represents the right UVJ stone seen on the recent CT. Denies prior hx of kidney stone Family hx of stones includes a sibling No significant personal or family urological hx Patient examined at bedside this AM. Awake, sitting up in bed on arrival. He reports a significant improvement in pain with the IV pain medication given in the ER. Rates pain 09/20. He has not required pain medication since last dose at 4am. He is straining all urine and notes no stone passage. Denies hematuria/dysuria. Denies fevers or chills. Vomiting x1 overnight, for which he was given Zofran. No nausea or vomiting since then. Voiding spontaneously with no difficulty. Stream good. Feels he is emptying his bladder well. He does report some baseline "BPH symptoms." Chart review at time of exam today: Wbc 9.83, Hgb 12.9, Cr 1.37 Offers no additional complaints today Allergies Allergy/AdvReac Type Severity Reaction Status Date / Time No Known Allergies Allergy NONE Verified 04/01/20 09:31 Home Medications Medication Instructions Recorded Confirmed Type cholecalciferol (vitamin D3) 25 75 mcg PO DAILY 02/18/20 10/18/20 History mcg (1,000 unit) tablet atorvastatin 10 mg tablet 10 mg PO DAILY 02/19/20 10/18/20 History acetaminophen 1,000 mg PO TID #7 tab 10/19/20 Rx oxycodone 5 mg PO Q4H PRN #10 tab 10/19/20 Rx pantoprazole 40 mg PO DAILY 30 Days #30 tab 10/19/20 Rx tamsulosin 0.4 mg PO HS 14 Days #14 cap 10/19/20 Rx Patient History Medical History BPH (benign prostatic hyperplasia) History of herniated intervertebral disc no surgery needed Hyperlipidemia Surgical History H/O right inguinal hernia repair (02/25/20) Open right inguinal hernia repair. Dr. 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 Safe at Home: Yes Assistive Devices: None Review of Systems Review of Systems: All systems reviewed & are unremarkable except as noted in HPI & below Physical Exam Constitutional: well developed and well nourished; no acute distress and not ill appearing Neck: normal visual inspection Respiratory: normal respiratory effort and able to speak in complete sentences Cardiovascular: Extremities: no calf tenderness Gastrointestinal (Abdomen): Inspection/Auscultation: abdomen normal to inspection Skin: Warm and dry, No visible rashes or lesions Neurologic: moves all extremities and awake; not confused Psychiatric: Orientation: alert, oriented x 3 and cooperative Results & Data ([facility]) Vital Signs (Past 12 Hours) Vital Signs Temp Pulse Resp BP Pulse Ox 10/19/20 07:03 37.2 C 72 16 120/70 93 10/18/20 22:20 36.7 C 70 16 134/75 98 PG Care Time/CCT Total # of Minutes Spent Total Time Spent with Patient: Total time spent is greater than 50% in coordination of care (as documented) at patient's floor/unit and/or counseling patient: Coding Level of Care Code 64292 Initial Inpt Care Lvl 3 Diagnoses Right distal ureteral calculus N20.1 Acute right flank pain R10.9
== END 2020-10-19 10:56 | disposition home or self-care (01) ==
LOC: ED 11:24 → INTOOBSV 16:29 → 3E 16:29 → SUATTDRO 16:29 → 3E 17:39